=== PATIENT | female | born 1985 | race American Indian/Alaskan Native ===

== ENCOUNTER 2016-10-23 18:21 | Emergency (ER) | payer SELFPAY ==
--- NOTE | 2016-10-24 02:23 | Emergency Department Report ---
HPI - General Chief Complaint: Medical Clearance Time Seen by Provider: 10/24/16 01:40 - HPI HPI: 31 y/o female with complaint of mass to the right breast .pt state the mass has increase in size over the last 2 month .pt state painful to touch and unable to wear a bra or lie on side .pt state that she has taken over the counter pain medication without any relief .pt denies any drainage from site . ED Past Medical Hx - Social History Smoking Status: Never Smoker Substance Use Type: None - Medications Home Medications: Home Medications Medication Instructions Recorded Confirmed Last Taken Type Ciprofloxacin HCl [Cipro] 500 mg PO Q12H #20 tab 03/14/14 Unknown Rx Phenazopyridine [Pyridium] 200 mg PO PC #9 tablet 03/14/14 Unknown Rx Hydrocortisone 1% [Hydrocortisone 1 applicatio TP TID #1 tube 11/09/15 Unknown Rx 1% CREAM] Sulfamethoxazole/Trimethoprim 1 each PO BID #10 tablet 11/09/15 Unknown Rx [Bactrim DS TAB] Acetaminophen/Codeine [Tylenol #3] 1 tab PO Q4HR PRN #15 tablet 10/24/16 Unknown Rx ED Review of Systems ROS: Stated complaint: LT BREAST LUMP/DISCHARGE Other details as noted in HPI Constitutional: denies: chills, fever Eyes: denies: eye pain, eye discharge, vision change ENT: denies: ear pain, throat pain Respiratory: denies: cough, shortness of breath, wheezing Cardiovascular: denies: chest pain, palpitations Endocrine: no symptoms reported Gastrointestinal: denies: abdominal pain, nausea, diarrhea Genitourinary: denies: urgency, dysuria, discharge Musculoskeletal: denies: back pain, joint swelling, arthralgia Skin: denies: rash, lesions Neurological: denies: headache, weakness, paresthesias Psychiatric: denies: anxiety, depression Hematological/Lymphatic: denies: easy bleeding, easy bruising Physical Exam - Physical Exam Vital Signs: Vital Signs 10/23/16 18:25 Temperature 98.4 F Pulse Rate 97 H Respiratory 16 Rate Blood Pressure 108/74 O2 Sat by Pulse 98 Oximetry ED Course Vital Signs 10/23/16 18:25 Temperature 98.4 F Pulse Rate 97 H Respiratory 16 Rate Blood Pressure 108/74 O2 Sat by Pulse 98 Oximetry ED Medical Decision Making - Medical Decision Making Left breast mass per ultrasound pt instruct to follow up with primary care Critical care attestation.: If time is entered above; I have spent that time in minutes in the direct care of this critically ill patient, excluding procedure time. ED Disposition Clinical Impression: Left breast mass Disposition: DISCHARGED TO HOME OR SELFCARE Is pt being admited?: No Does the pt Need Aspirin: No Condition: Stable Instructions: Breast Mass (ED) Prescriptions: Acetaminophen/Codeine [Tylenol #3] 1 tab PO Q4HR PRN #15 tablet PRN Reason: Pain Referrals: PRIMARY CARE, [Primary Care Provider] - 3-5 Days [facility] [Outside] - 3-5 Days Forms: Work/School Release Form(ED) Time of Disposition: 02:55
--- NOTE | 2016-10-24 02:36 | Ultrasound Report ---
FINAL REPORT PROCEDURE: US BREAST LT LIMITED TECHNIQUE: Real-time sonography in multiple planes of the LEFT breast was performed with image documentation; limited. HISTORY: edema and pain mass noted COMPARISON: No prior studies are available for comparison. FINDINGS: LEFT breast: There is a 5.1 centimeter mass in the upper outer quadrant of the left breast in the 2 o'clock position. This contains fluid and solid components and peripheral and internal vascularity. There is posterior acoustical enhancement. This could be a hematoma. Abscess considered less likely. Solid tumor not excluded. Percutaneous aspiration may be indicated. IMPRESSION: Left breast mass as described.
[2016-10-24 03:10] VITALS: BP 121/86
== END 2016-10-24 03:22 | disposition home or self-care (01) ==
LOC: ED 18:21
DX: N63 Unspecified lump in breast (principal)

== ENCOUNTER 2016-11-08 14:51 | Emergency (ER) | payer OTHER ==
[2016-11-08 17:35] LABS: Basophils % (Auto) 0.8 % (0.0-1.8); Eosinophils % (Auto) 3.4 % (0.0-4.3); Hematocrit 37.6 % (30.3-42.9); Hemoglobin 12.9 gm/dl (10.1-14.3); Mean Corpuscular HGB Conc 34 % (30-34); Mean Corpuscular Hemoglobin 30 pg (28-32); Mean Corpuscular Volume 88 fl (79-97); Platelet Count 265 K/mm3 (140-440); Red Blood Count 4.27 M/mm3 (3.65-5.03); Red Cell Distribution Width 12.8 % (13.2-15.2); White Blood Count 4.9 K/mm3 (4.5-11.0)
[2016-11-08 18:09] LABS: Anion Gap 13 mmol/L; BUN/Creatinine Ratio 18.33; Blood Urea Nitrogen 11 mg/dL (7-17); Carbon Dioxide 28 mmol/L (22-30); Chloride 100.2 mmol/L (98-107); Glucose 110 mg/dL (65-100); Potassium 3.7 mmol/L (3.6-5.0); Sodium 137 mmol/L (137-145)
--- NOTE | 2016-11-08 22:27 | Emergency Department Report ---
ED General Adult HPI - General Chief complaint: Skin/Abscess/Foreign Body Stated complaint: PAIN IN LEFT BREAST Time Seen by Provider: 11/08/16 19:08 Source: patient Mode of arrival: Ambulatory Limitations: No Limitations - History of Present Illness Initial comments: 31-year-old female that was seen here on 10/23/2016 for complaint of breast pain. Patient had an ultrasound of the left breast in the findings were there is a 5.1 cm mass in the upper outer quadrant of the left breast in the 2 o' clock position discontinues fluid and solid component and peripheral and internal vascularity there is a posterior acoustical enhancement. This could be a hematoma. Abscess consider less likely. Solid tumor not excluded. Percutaneous aspiration may be indicated. To follow-up with [facility] as well as they referred her to a breast specialist. Patient brings in a paper stating that she needs to come here for further diagnostic tests with biopsy. She does now live in the [facility]. Please assist with your [facility] funds for these available services she lives in your district. Patient's complain that she is having pain 8 out of 10. Patient does inform me that she's been placed on antibiotics and has a prescription for pain medicine. - Related Data Previous Rx's Medication Instructions Recorded Last Taken Type Ciprofloxacin HCl [Cipro] 500 mg PO Q12H #20 tab 03/14/14 Unknown Rx Phenazopyridine [Pyridium] 200 mg PO PC #9 tablet 03/14/14 Unknown Rx Hydrocortisone 1% [Hydrocortisone 1 applicatio TP TID #1 tube 11/09/15 Unknown Rx 1% CREAM] Sulfamethoxazole/Trimethoprim 1 each PO BID #10 tablet 11/09/15 Unknown Rx [Bactrim DS TAB] Acetaminophen/Codeine [Tylenol #3] 1 tab PO Q4HR PRN #15 tablet 10/24/16 Unknown Rx Allergies Allergy/AdvReac Type Severity Reaction Status Date / Time No Known Allergies Allergy Verified 03/14/14 01:41 ED Review of Systems ROS: Stated complaint: PAIN IN LEFT BREAST Other details as noted in HPI ED Past Medical Hx - Past Medical History Previous Medical History?: No - Surgical History Past Surgical History?: No - Social History Smoking Status: Never Smoker Substance Use Type: None - Medications Home Medications: Home Medications Medication Instructions Recorded Confirmed Last Taken Type Ciprofloxacin HCl [Cipro] 500 mg PO Q12H #20 tab 03/14/14 Unknown Rx Phenazopyridine [Pyridium] 200 mg PO PC #9 tablet 03/14/14 Unknown Rx Hydrocortisone 1% [Hydrocortisone 1 applicatio TP TID #1 tube 11/09/15 Unknown Rx 1% CREAM] Sulfamethoxazole/Trimethoprim 1 each PO BID #10 tablet 11/09/15 Unknown Rx [Bactrim DS TAB] Acetaminophen/Codeine [Tylenol #3] 1 tab PO Q4HR PRN #15 tablet 10/24/16 Unknown Rx ED Physical Exam - General Limitations: No Limitations General appearance: alert - Head Head exam: Present: atraumatic, normocephalic - Respiratory Respiratory exam: Present: other (left breast firmness warm erythematous tender to palpate.) ED Course Vital Signs 11/08/16 16:09 Temperature 98.1 F Pulse Rate 92 H Respiratory 18 Rate Blood Pressure 120/75 O2 Sat by Pulse 98 Oximetry ED Medical Decision Making - Lab Data Result diagrams: 11/08/16 17:03 11/08/16 17:03 - Medical Decision Making Patient been evaluated by this provider in fast track. Discussed with patient that we will need her to come in in the morning to speak to the social work case manager regards to getting her stereotactic biopsy of her left breast done. Also discussed with patient that she needs to contact the provider who ordered her to come here with him to schedule biopsy. Given patient pain medication to get her out of discomfort. Patient verbalized understanding Critical care attestation.: If time is entered above; I have spent that time in minutes in the direct care of this critically ill patient, excluding procedure time. ED Disposition Clinical Impression: Breast mass, left Disposition: DISCHARGED TO HOME OR SELFCARE Is pt being admited?: No Does the pt Need Aspirin: No Condition: Stable Instructions: Breast Mass (ED) Additional Instructions: It's important for you to come here in the morning around 8-830am to speak to the social work case manager regards to helping you scheduled for this stereotactic biopsy. their number [phone]. Referrals: PRIMARY CARE, [Primary Care Provider] - 3-5 Days Forms: Work/School Release Form(ED)
[2016-11-08] MEDS: NORCO 7.5/325 PO ONE (22:46)
[2016-11-08 22:50] VITALS: BP 121/82
--- NOTE | 2016-11-08 22:52 | XRay Report ---
FINAL REPORT EXAM: XR CHEST ROUTINE 2V HISTORY: STEVE TECHNIQUE: Frontal and lateral chest x-ray. PRIORS: None. FINDINGS: Cardiac and mediastinal silhouette within normal limits. Lungs are normally expanded. No focal consolidation, pleural effusion or apparent pneumothorax. IMPRESSION: 1. No acute findings.
== END 2016-11-08 22:50 | disposition home or self-care (01) ==
LOC: ED 14:51
DX: N63 Unspecified lump in breast (principal)
CPT/HCPCS: 36415; 71020; 80048; 85025

== ENCOUNTER 2016-12-14 15:22 | Outpatient (CLI) | payer SELFPAY | END 2016-12-14 15:23 | disposition home or self-care (01) | LOC: LABHHL 15:22 | PROVIDERS: ATTEND Surgery | DX: C50.112 Malignant neoplasm of central portion of left female breast (principal) | CPT/HCPCS: 88305 ==

== ENCOUNTER 2016-12-20 06:35 | Day surgery (SDC) | payer MEDICAID, OTHER ==
[~2016-12-20 06:35] MED LIST: DILAUDID ONE; DIPRIVAN 10 MG/ML IV ONE; XYLOCAINE MPF 2% ONE
[2016-12-20] MEDS ORDERED: LACTATED RINGERS 1,000 ML IV SCH (07:00)
[2016-12-20] MEDS ORDERED: VERSED IV NR (07:00)
--- NOTE | 2016-12-20 07:05 | Anesthesia Day of Surgery ---
Anesthesia Day of Surgery - Day of Surgery Patient Examined: Yes Patient H&P Reviewed: Yes Patient is NPO: Yes
--- NOTE | 2016-12-20 07:07 | Anesthesia Consultation ---
Anesthesia Consult and Med Hx - Airway Anesthetic Teeth Evaluation: Good ROM Head & Neck: Adequate Mental/Hyoid Distance: Inadequate Mallampati Class: Class II Intubation Access Assessment: Probably Good - Pulmonary Exam CTA: Yes - Cardiac Exam Cardiac Exam: RRR - Pre-Operative Health Status ASA Pre-Surgery Classification: ASA2 Proposed Anesthetic Plan: General - Central Nervous System Hx Psychiatric Problems: No - Gastrointestinal Hx Gastroesophageal Reflux Disease: Yes (only with certain foods) - Other Systems Hx Cancer: Yes (RIGHT BREAST, DX:12/08/16) - Additional Comments Anesthesia Medical History Comments: NPO after MN. No prior anesthetics. No family hx of anesthesia problems
[2016-12-20] MEDS ORDERED: NACL BACTERIOSTATIC INFILTRATI ONE (07:19)
[2016-12-20] MEDS ORDERED: ANCEF/STERILE WATER 2 GM/20 ML IV NR (08:00)
[2016-12-20] MEDS ORDERED: PEPCID PO NR (08:00)
[2016-12-20] MEDS ORDERED: ZOFRAN ONE (08:02)
[2016-12-20] MEDS ORDERED: DECADRON ONE (08:02)
[2016-12-20] MEDS ORDERED: PERCOCET 5/325 PO PRN (08:30)
[2016-12-20] MEDS ORDERED: NACL 0.9% IR ONE (08:30)
[2016-12-20] MEDS ORDERED: HEPARIN 10,000 UNITS/10 ML IV ONE (08:31)
[2016-12-20] MEDS ORDERED: NACL 0.9% IV ONE (08:31)
--- NOTE | 2016-12-20 09:14 | Short Stay Summary ---
Short Stay Documentation Date of service: 12/20/16 - History H&P: obtained from office - Allergies and Medications Current Medications: Allergies latex Allergy (Severe, Verified 12/20/16 07:10) Swelling rash, noted after intercourse with a latex condom, denies any breathing difficulty at that time Home Medications Medication Instructions Recorded Confirmed Last Taken Type Sulfamethoxazole/Trimethoprim 1 each PO BID #10 tablet 11/09/15 12/20/16 23:30 Rx [Bactrim DS TAB] Acetaminophen/Codeine [Tylenol #3] 1 tab PO Q4HR PRN #15 tablet 10/24/1612/19/16 23:30 Rx Active Medications Cefazolin Sodium (Ancef/Sterile Water 2 Gm/20 Ml) 2 gm IV PREOP NR Stop: 12/20/16 23:59 Famotidine (Pepcid) 20 mg PO PREOP NR Stop: 12/20/16 23:59 Last Admin: 12/20/16 07:30 Dose: 20 mg Hydromorphone HCl (Dilaudid) 0.5 mg IV Q10MIN PRN PRN Reason: Pain , Severe (7-10) Stop: 12/23/16 16:00 Lactated Ringer's (Lactated Ringers) 1,000 mls @ 100 mls/hr IV DIRECT JOSE ALFREDO Last Admin: 12/20/16 07:25 Dose: 100 mls/hr Midazolam HCl (Versed) 2 mg IV PREOP NR Stop: 12/20/16 23:59 Last Admin: 12/20/16 07:44 Dose: 2 mg Oxycodone/Acetaminophen (Percocet 5/325) 1 tab PO ONCE PRN PRN Reason: Pain, Moderate (4-6) Stop: 12/20/16 16:00 - Brief post op/procedure progress note Date of procedure: 12/20/16 Pre-op diagnosis: Left breast cancer Post-op diagnosis: same Procedure: Right port placement Anesthesia: GETA Findings: Right port placement in good position Surgeon: BIB BENITO Estimated blood loss: minimal Pathology: none Condition: stable - Disposition Condition at discharge: Good Disposition: DISCHARGED TO HOME OR SELFCARE Short Stay Discharge Plan Activity: other (no heavy lifting) Diet: regular Wound: other (keep incision clean and dry; may shower in 24 hours; no baths, pools or lakes) Follow up with: MONICA METZ MD [Primary Care Provider] - 7 Days BIB BENITO MD [Staff Physician] - 7 Days
--- NOTE | 2016-12-20 09:24 | Operative Report ---
Operative Report Operative Report: Date of procedure: 12/20/2016 Pre-operative diagnosis: Left breast cancer of the upper outer quadrant in need of central venous access Post-operative diagnosis: Same Procedure name(s): Right port placement under fluoroscopy guidance Surgeon: Ria Baron M.D. Anesthesia: Gen. Findings: Right port placement with position confirmed under fluoroscopy guidance in good position Complications: None Indications for operative procedure: This is a 31-year-old premenopausal -[place] lady with stage III left breast cancer of the upper outer quadrant. Patient will start neoadjuvant chemotherapy this coming Monday and is in need of central venous access. Patient wished to proceed with the above procedure. Procedure in detail: Patient was taken to the operating room. Gen. anesthesia was administered. Bilateral neck and chest were prepped and draped in the normal sterile operative fashion. Head was placed down. Sternal notch as well as the clavicle and pectoral groove were identified. The right subclavian vein was accessed with needle and syringe attached with appropriate backflow of blood. Guidewire was then inserted with position confirmed under fluoroscopy guidance. A skin incision using a 15 blade knife was then made at the insertion of the wire. A pocket was created with the aid of the Bovie cautery. Dilator with sheath attached were then threaded through the wire with the dilator and wire then removed and catheter placed. The sheath was then peeled away with catheter in place. Catheter was then placed correctly at the atrial caval junction and catheter cut to size. Appropriate backflow of blood was noted with heparin-saline flush. The port was then attached to the catheter and placed in the pocket created nicely. The port was then sutured into place. The port was then accessed with heparine-saline with good backflow blood. The port was then flushed with heparin. Skin incision was approximated and closed with interrupted 3-0 Vicryl and skin closed with running 4-0 Monocryl and skin affix. Checks x-ray then performed in upright position with port in good placement with no findings for pneumothorax. She was awakened from anesthesia without any complications and transported to PACU in good condition.
[2016-12-20] MEDS: DILAUDID IV PRN ×2 (09:45→09:57)
--- NOTE | 2016-12-20 09:47 | Post Anesthesia Evaluation ---
- Post Anesthesia Evaluation Patient Participated: Yes Airway Patent: Yes Stable Respiratory Function: Yes Nausea/Vomiting: No Temp > 96.8F: Yes Pain Manageable: Yes Adequeate Hydration: Yes Anesthesia Complications: No Block Receding Appropriately: Not Applicable Patient on Ventilator: No
[2016-12-20] MEDS ORDERED: ANCEF/STERILE WATER 2 GM/20 ML IV ONE (09:49)
--- NOTE | 2016-12-20 10:31 | Fluoroscopy Report ---
AP chest: An Shwsgf-[id number]-Gwvz is present on the right entering the subclavian vein. The tip is in the mid SVC. The lungs are clear and the mediastinal contour is unremarkable.
[2016-12-20 11:16] VITALS: BP 109/72
== END 2016-12-20 11:00 | disposition home or self-care (01) ==
LOC: OR 06:35
PROVIDERS: ATTEND Surgery
DX: C50.412 Malignant neoplasm of upper-outer quadrant of left female breast (principal); K21.9 Gastro-esophageal reflux disease without esophagitis; Z80.1 Family history of malignant neoplasm of trachea, bronchus and lung; Z80.3 Family history of malignant neoplasm of breast
CPT/HCPCS: 36561; 77001; 81025; 88112; 88305; C1788; J0690; J1100; J1170; J1644; J2250; J2405; J2704; J7120

== ENCOUNTER 2016-12-20 17:01 | Outpatient (CLI) | payer MEDICAID | END 2016-12-20 17:02 | disposition home or self-care (01) | LOC: LAB 17:01 | PROVIDERS: ATTEND Surgery | DX: C50.112 Malignant neoplasm of central portion of left female breast (principal) | CPT/HCPCS: 88112; 88305 ==

== ENCOUNTER 2016-12-30 10:25 | Outpatient (CLI) | payer MEDICAID ==
[2016-12-30 12:15] LABS: Blood Urea Nitrogen 10 mg/dL (7-17)
[2016-12-30] MEDS ORDERED: NACL ONE ×2 (13:34→14:23)
--- NOTE | 2016-12-31 09:58 | Nuclear Medicine Report ---
Whole body bone scan: Examination performed with 25 mCi technetium 99m MDP. History: Breast cancer. Findings: Uniform distribution of tracer is noted at calvarium, cervical, thoracic and lumbar spine. Normal tracer pelvis ribs hips and upper and lower extremity. Normal tracer is noted in kidneys and bladder. Impression: Essentially negative bone scan.
--- NOTE | 2017-01-02 15:45 | Cat Scan Report ---
CT CHEST, ABDOMEN AND PELVIS WITH CONTRAST: 12/30/16 10:25:00 CLINICAL: Newly diagnosed left breast cancer. COMPARISON: MRI Breast 12/16/16 TECHNIQUE: Volumetric acquisition and 1.25 millimeter scan reconstructions after the uneventful intravenous injection of 100 cc of Omnipaque 300. Consent was obtained prior to the administration of the contrast. Oral contrast was also given. FINDINGS: Chest: The lungs are clear. No pulmonary nodule or mass. Normal aorta, heart and pulmonary arteries. Normal esophagus and trachea. No mediastinal or hilar lymphadenopathy.No axillary or supraclavicular lymphadenopathy. A right [id number]-w-[id number] tip is in the distal SVC. The enlarged left breast with a known 8 cm mass is partially included on the exam. Numerous left axillary lymph nodes. The largest lymph node measures 2 cm and contains a biopsy clip. It correlates with the known metastatic lymph node. Abdomen: Normal stomach, duodenum, pancreas and spleen. Normal kidneys. Normal aorta and inferior vena cava. No lymphadenopathy.No ascites.Normal small bowel. Normal ascending, transverse and descending colon. Normal appendix. Pelvis: Normal urinary bladder and rectum.Normal uterus with an IUD. Normal right ovary. A 3 cm cyst of the left ovary. Bone windows demonstrate no suspicious bone lesion. IMPRESSION:1. Known left breast cancer with left axillary cleve metastasis. 2. No evidence of pulmonary, hepatic or skeletal metastasis. 3. A 3 cm cyst of the left ovary.
== END 2016-12-30 10:26 | disposition home or self-care (01) ==
LOC: NM 10:25
PROVIDERS: ATTEND Surgery
DX: C50.412 Malignant neoplasm of upper-outer quadrant of left female breast (principal)
CPT/HCPCS: 36415; 71260; 74177; 78306; 82565; 84520; A9503; Q9967

== ENCOUNTER 2017-07-26 10:25 | Observation (INO) | payer MEDICAID ==
[~2017-07-26 10:25] MED LIST changes: -DILAUDID ONE; -DIPRIVAN 10 MG/ML IV ONE; +MARCAINE 0.25% INFILTRATI ONE; +XYLOCAINE 1% 20 mL ONE; -XYLOCAINE MPF 2% ONE
[2017-07-26] MEDS ORDERED: VERSED IV PRN (10:37)
[2017-07-26] MEDS ORDERED: MARCAINE-EPI 0.5%-1:200,000 INFILTRATI ONE (10:39)
[2017-07-26] MEDS ORDERED: PEPCID IV NR (11:00)
[2017-07-26] MEDS ORDERED: NEURONTIN PO NR (11:00)
[2017-07-26] MEDS ORDERED: NACL 0.9% 1000 ML 1,000 ML IV SCH (11:00)
[2017-07-26] MEDS ORDERED: DECADRON IV ONE (11:00)
--- NOTE | 2017-07-26 11:26 | Anesthesia Consultation ---
Anesthesia Consult and Med Hx Date of service: 07/26/17 - Airway Anesthetic Teeth Evaluation: Good ROM Head & Neck: Adequate Mental/Hyoid Distance: Adequate Mallampati Class: Class II Intubation Access Assessment: Good - Pulmonary Exam CTA: Yes - Cardiac Exam Cardiac Exam: No Murmur - Pre-Operative Health Status ASA Pre-Surgery Classification: ASA2 Proposed Anesthetic Plan: General Nerve Block: PEC - Pulmonary Hx Smoking: Yes (3 years quit when she was 23) - Central Nervous System Hx Psychiatric Problems: No - Gastrointestinal Hx Gastroesophageal Reflux Disease: Yes (only with certain foods) - Hematic Hx Anemia: Yes - Other Systems Hx Alcohol Use: No Hx Substance Use: No Hx Cancer: Yes
--- NOTE | 2017-07-26 11:26 | Anesthesia Day of Surgery ---
Anesthesia Day of Surgery - Day of Surgery Patient Examined: Yes Patient H&P Reviewed: Yes Patient is NPO: Yes
[2017-07-26] MEDS ORDERED: NEO SYNEPHRINE/NS Syringe(OR USE) IV ONE (12:00)
[2017-07-26] MEDS ORDERED: MARCAINE 0.5% INFILTRATI ONE (12:00)
[2017-07-26] MEDS ORDERED: DIPRIVAN 10 MG/ML IV ONE (12:21)
[2017-07-26] MEDS ORDERED: DILAUDID ONE ×2 (12:21→17:10)
[2017-07-26] MEDS ORDERED: DECADRON ONE (12:22)
[2017-07-26] MEDS ORDERED: XYLOCAINE MPF 2% ONE (12:22)
[2017-07-26] MEDS ORDERED: ZOFRAN ONE (12:22)
[2017-07-26] MEDS ORDERED: WATER FOR IRRIG STERILE IR ONE (13:06)
[2017-07-26] MEDS ORDERED: ANCEF/STERILE WATER 2 GM/20 ML IV NR (14:00)
--- NOTE | 2017-07-26 16:19 | Short Stay Summary ---
Short Stay Documentation Date of service: 07/26/17 - History H&P: obtained from office - Allergies and Medications Current Medications: Allergies latex Allergy (Severe, Verified 07/21/17 14:35) Swelling rash, noted after intercourse with a latex condom, denies any breathing difficulty at that time Home Medications Medication Instructions Recorded Confirmed Last Taken Type Cyclobenzaprine [Flexeril] 10 mg PO TID PRN #20 tablet 07/26/17 Unknown Rx HYDROcodone/APAP 5-325 [[place] 1 each PO Q6HR PRN #30 tablet 07/26/17 Unknown Rx 5/325] Active Medications Cefazolin Sodium (Ancef/Sterile Water 2 Gm/20 Ml) 2 gm IV PREOP NR Stop: 07/26/17 21:00 Sodium Chloride (Nacl 0.9% 1000 Ml) 1,000 mls @ 100 mls/hr IV DIRECT JOSE ALFREDO Last Admin: 07/26/17 11:34 Dose: 100 mls/hr - Brief post op/procedure progress note Date of procedure: 07/26/17 Pre-op diagnosis: Left breast cancer of the upper outer quadrant Post-op diagnosis: same Procedure: Left modified radical mastectomy Anesthesia: GETA Findings: Left MRM Surgeon: BIB BENITO Oyster Shucker: SANTOS SOLARES Estimated blood loss: minimal Pathology: list (left MRM) Specimen disposition: to lab Condition: stable - Disposition Condition at discharge: Good Disposition: [id number]/TX-02 [facility] Short Stay Discharge Plan Activity: other (no heavy lifting) Diet: regular Wound: other (keep incision clean and dry and may shower in 48 hours; no baths, pools or lakes; do not rub or scrub incision) Follow up with: MONICA METZ MD [Primary Care Provider] - 7 Days BIB BENITO MD [Staff Physician] - 7 Days Prescriptions: Cyclobenzaprine [Flexeril] 10 mg PO TID PRN #20 tablet PRN Reason: Muscle Spasm HYDROcodone/APAP 5-325 [[place] 5/325] 1 each PO Q6HR PRN #30 tablet PRN Reason: Pain
--- NOTE | 2017-07-26 16:32 | Operative Report ---
Operative Report Operative Report: Date of service: 07/26/2017 Preoperative diagnosis: Left breast cancer of the upper outer quadrant, Stage III Postoperative diagnosis: Same Procedure: Left modified radical mastectomy Surgeon: Ria Baron M.D. Asst.: Donna Ramirez MD Anesthesia: Gen. Findings: Known left breast cancer mass at the 2:00 position Complications: None Drains: Two 19 American KRISTEN drain Estimated blood loss: Minimal Disposition: PACU in good condition Indications for operative procedure: This is a 32-year-old premenopausal -[place] lady with stage III left breast cancer of the upper outer quadrant. She recently completed neoadjuvant chemotherapy. Recommendations were to proceed with a left MRM. Patient wished to proceed with the above procedure. Procedure in detail: Anesthesia placed a left pectoral muscle block prior to going to the operating room. The patient was taken to the operating room and was placed supine. Gen. anesthesia was administered. The left breast and chest were prepped and draped in the normal sterile operative fashion. Timeout was performed. Typical mastectomy incision markings were made. Palpable known breast cancer was noted at eliza 2:00 positino 4-6 cm from the nipple at skin dimplling. A skin incision was made with a 10 blade knife and dissection taken down to the subcutaneous tissues. First began raising of the superior flap to the level of the clavicle superiorly and posteriorly to the pectoralis muscle. Followed by raising of the medial flap to the level of the sternum and posteriorly to the pectoralis muscle. Followed by raising of the lateral flap to the level of the latissimus dorsi muscle and taken down posteriorly. Then proceeded with raising of the inferior flap to the level of the inframammary fold taken posteriorly to the pectoralis muscle. The mastectomy/breast was removed from the pectoralis muscle without incident. The specimen was appropriately marked and sent to pathology. Attention was then taken towards the left axilla for performance of the axillary lymph node dissection. The subclavian vein was identified and lymph nodes inferior to the vein was sweeped down inferiorly. Attention was then taken towards identification of the thoracodorsal bundle and long thoracic nerve. Axillary lymph nodes were removed between those boundaries and nerves unharmed. Palpable lymph nodes were present. Axillary lymph nodes were then sent to pathology. Hemostasis was noted. Two 19 American drains were placed, one in the axilla and one in the chest wall cavity. The subcutaneous tissues were approximated and closed using interrupted 3-0 Vicryl and the skin brought together and closed using a running 4-0 Monocryl followed by skin affix. She tolerated surgery very well and was awakened from anesthesia without any complications and transported to PACU in good condition.
[2017-07-26] MEDS ORDERED: REGLAN PO PRN (16:34)
[2017-07-26] MEDS ORDERED: ZOFRAN IV PRN (16:34)
[2017-07-26] MEDS ORDERED: BENADRYL PO PRN (16:34)
[2017-07-26] MEDS ORDERED: SODIUM CHLORIDE FLUSH SYRINGE 10 ML IV PRN (16:34)
[2017-07-26] MEDS ORDERED: TYLENOL PO PRN (16:34)
[2017-07-26] MEDS ORDERED: MORPHINE IV PRN (16:38)
[2017-07-26] MEDS ORDERED: LACTATED RINGERS 1,000 ML IV SCH (17:00)
[2017-07-26] MEDS: DILAUDID IV PRN ×2 (17:08→17:26)
--- NOTE | 2017-07-26 17:23 | Post Anesthesia Evaluation ---
- Post Anesthesia Evaluation Patient Participated: Yes Airway Patent: Yes Stable Respiratory Function: Yes Temp > 96.8F: Yes Pain Manageable: Yes Adequeate Hydration: Yes Anesthesia Complications: No
[2017-07-26] MEDS: COLACE PO SCH (22:20)
[2017-07-26] MEDS: PERCOCET 5/325 PO PRN (23:54)
[2017-07-27] MEDS: PERCOCET 5/325 PO PRN (05:16)
--- NOTE | 2017-07-27 06:24 | Progress Note ---
Assessment and Plan This is a 32 year old lady with Stage III left breast cancer POD#1 left MRM. 1. Pain well controlled. 2. Left chest incision healing well. 3. KRISTEN drain education. 4. OOB to hallway. 5. D/C planning for today. - Patient Problems (1) Breast cancer Status: Acute Qualifiers: Breast location: upper outer quadrant of breast Estrogen receptor status: E Patient sex: female Laterality: left Qualified Code(s): C50.412 - Malignant neoplasm of upper-outer quadrant of left female breast; Z17.0 - Estrogen receptor positive status [ER+]; Z17.0 - Estrogen receptor positive status [ER+] (2) Left breast mass Status: Acute Subjective Date of service: 07/27/17 Principal diagnosis: Left breast cancer of the upper outer quadrant Interval history: POD#1 left MRM Objective - Constitutional Vitals: Vital Signs - 12hr 07/26/17 07/27/17 21:00 02:45 Temperature 97.5 F L 97.7 F Pulse Rate 74 85 Respiratory 20 20 Rate Blood Pressure 89/62 98/60 [Right] O2 Sat by Pulse 100 100 Oximetry General appearance: Present: no acute distress - EENT Eyes: PERRL, EOM intact ENT: hearing intact, clear oral mucosa, dentition normal Ears: bilateral: normal - Neck Neck: supple, normal ROM - Respiratory Respiratory effort: normal Respiratory: bilateral: CTA - Breasts Breasts: other (left chest incision healing well; clean, dry and intact; no hematoma; KRISTEN drains to bulb suction; skin well perfursed) - Cardiovascular Rhythm: regular Extremities: no ischemia, pulses intact, pulses symmetrical, No edema, normal temperature, normal color, Full ROM - Gastrointestinal General gastrointestinal: Present: soft, non-tender, non-distended Rectal Exam: deferred - Genitourinary Female genitourinary: deferred - Integumentary Integumentary: clear, warm, dry - Musculoskeletal Musculoskeletal: strength equal bilaterally - Neurologic Neurologic: CNII-XII intact, moves all extremities - Psychiatric Psychiatric: appropriate mood/affect, intact judgment & insight, memory intact, cooperative
[2017-07-27] MEDS ORDERED: PERCOCET 5/325 PO PRN (08:30)
[2017-07-27] MEDS ORDERED: PRED FORTE 1% ONE (12:59)
--- NOTE | 2017-07-27 13:18 | Progress Note ---
Subjective Date of service: 07/27/17 Principal diagnosis: Left breast cancer of the upper outer quadrant Interval history: 1st POD after mastectomy Patient is in the bed, comfortable. Pain is well controlled with pain meds. Ambulated well. No nausea or vomiting. No anesthesia complications Objective - Constitutional Vitals: Vital Signs - 12hr 07/27/17 07/27/17 07/27/17 02:45 07:09 07:55 Temperature 97.7 F 98.3 F 98.6 F Pulse Rate 85 74 71 Respiratory 20 18 18 Rate Blood Pressure 98/60 100/67 94/57 [Right] O2 Sat by Pulse 100 100 98 Oximetry 07/27/17 11:35 Temperature 98.5 F Pulse Rate 91 H Respiratory 20 Rate Blood Pressure 93/61 [Right] O2 Sat by Pulse 100 Oximetry
[2017-07-27] MEDS: COLACE PO SCH (13:35)
[2017-07-27 16:42] VITALS: BP 104/70
== END 2017-07-27 17:30 | disposition home or self-care (01) ==
LOC: OR 10:25 → OB 16:34
PROVIDERS: ADMIT Surgery; ATTEND Surgery
DX: C50.412 Malignant neoplasm of upper-outer quadrant of left female breast (principal); Z80.3 Family history of malignant neoplasm of breast; Z79.899 Other long term (current) drug therapy
CPT/HCPCS: 19307; 64450; 81025; 88305; 88309; 88342; 96374; 96375; 96376; G0378; J1100; J1170; J2250; J2270; J2370; J2405; J2704; J7030; J7120; 88307

== ENCOUNTER 2019-05-27 10:56 | Day surgery (SDC) | payer MEDICAID, OTHER ==
[~2019-05-27 10:56] MED LIST changes: +ANCEF/STERILE WATER 2 GM/20 ML 2 GM/20 ML SYRINGE IV NR; -MARCAINE 0.25% INFILTRATI ONE; -XYLOCAINE 1% 20 mL ONE
--- NOTE | 2019-05-27 12:15 | Operative Report ---
Operative Report Operative Report: Operative Report: Date of Service: May 27, 2019 Properative diagnosis: Right port with central venous access not indicated Postoperative diagnosis: Same Procedure: Right port removal Surgeon: Ria Baron MD Photographer Finish: Nani Dennis MD Anesthesia: Local MAC Findings: Removal of right port in its entirety Complications: None Drain: None Disposition: PACU in good condition Indications for operative procedure: This is a 34-year-old lady with a personal history of Stage III left breast cancer. Patient has completed neoadjuvant chemotherapy and central venous access no longer indicated. Patient wished to proceed with port removal. Procedure in detail: Patient was taken to the operating procedure room. She was laid supine. Local MAC anesthesia was administered. The port was identified of the right chest. The right chest was prepped and draped in the normal sterile operative fashion. The skin was anesthetized with 1% lidocaine mix with quarter percent Marcaine. The prior port incision was opened with a 15 blade knife and taken down to the subcutaneous tissues. The port was encountered. The catheter was encountered and was appropriately dissected free and removed in its entirety. Then proceed with port removal with dissection of scar tissue around the port. The port was removed in its entirety without any complications. Hemostasis was obtained. Port cavity site was irragated and suctioned. The subcutanoeus tisses were brought together and closed with interrupted 3-0 Vicryl followed by closing of the skin with a running 4-0 Monocryl. She tolerated the procedure very well and was transferred to PACU in good condition.
--- NOTE | 2019-05-27 12:16 | Anesthesia Consultation ---
Anesthesia Consult and Med Hx Date of service: 05/27/19 - Airway Anesthetic Teeth Evaluation: Good ROM Head & Neck: Adequate Mental/Hyoid Distance: Adequate Mallampati Class: Class II Intubation Access Assessment: Good - Pulmonary Exam CTA: Yes - Cardiac Exam Cardiac Exam: RRR - Pre-Operative Health Status ASA Pre-Surgery Classification: ASA2 Proposed Anesthetic Plan: MAC - Pulmonary Hx Smoking: No (3 years quit when she was 23) Hx Asthma: No COPD: No Hx Pneumonia: No - Central Nervous System Hx Psychiatric Problems: Yes - Gastrointestinal Hx Gastroesophageal Reflux Disease: Yes (only with certain foods) - Endocrine Hx End Stage Renal Disease: No - Hematic Hx Anemia: Yes - Other Systems Hx Alcohol Use: Yes (OCC, MIXED DRINK) Hx Substance Use: No Hx Cancer: Yes
--- NOTE | 2019-05-27 12:16 | Anesthesia Day of Surgery ---
Anesthesia Day of Surgery - Day of Surgery Patient Examined: Yes Patient H&P Reviewed: Yes Patient is NPO: Yes
[2019-05-27] MEDS ORDERED: MARCAINE 0.25% INFILTRATI ONE ×3 (12:20→12:35)
[2019-05-27] MEDS ORDERED: XYLOCAINE 1% 20 mL ONE (12:20)
[2019-05-27] MEDS ORDERED: SUBLIMAZE ONE (12:25)
[2019-05-27] MEDS ORDERED: DIPRIVAN 10 MG/ML IV ONE ×2 (12:25→12:58)
[2019-05-27] MEDS ORDERED: LACTATED RINGERS 1,000 ML IV SCH (12:30)
[2019-05-27] MEDS ORDERED: VERSED IV NR (12:30)
[2019-05-27] MEDS ORDERED: XYLOCAINE 1% 20 mL INFILTRATI ONE ×2 (12:35)
[2019-05-27] MEDS ORDERED: WATER FOR IRRIG STERILE IR ONE (12:35)
[2019-05-27] MEDS ORDERED: PHENYLEPHRINE/NS Syringe 1,000 MCG/10 ML IV ONE (13:02)
--- NOTE | 2019-05-27 13:22 | Short Stay Summary ---
Short Stay Documentation Date of service: 05/27/19 - History H&P: obtained from office - Allergies and Medications Current Medications: Allergies latex Allergy (Severe, Verified 07/21/17 14:35) Swelling rash, noted after intercourse with a latex condom, denies any breathing difficulty at that time Home Medications Medication Instructions Recorded Confirmed Last Taken Type oxyCODONE 5 mg PO PRN 05/24/19 05/24/19 Unknown History Active Medications Cefazolin Sodium (Ancef/Sterile Water 2 Gm/20 Ml) 2 gm in 20 mls @ 80 mls/hr IV PREOP NR; Protocol Stop: 05/27/19 23:59 Lactated Ringer's (Lactated Ringers) 1,000 mls @ 100 mls/hr IV DIRECT JOSE ALFREDO Last Admin: 05/27/19 12:18 Dose: 100 mls/hr Documented by: Midazolam HCl (Versed) 2 mg IV ONCE NR Stop: 05/27/19 19:00 Last Admin: 05/27/19 12:18 Dose: 2 mg Documented by: - Brief post op/procedure progress note Date of procedure: 05/27/19 Pre-op diagnosis: History of left breast cancer, central venous access not indicated Post-op diagnosis: same Procedure: Right port removal Anesthesia: MAC Findings: Right port removal in its entirety Surgeon: BIB BENITO Electronic Device Monitor: DOMINGO OLSEN Estimated blood loss: minimal Pathology: list (port) Specimen disposition: to lab - Disposition Condition at discharge: Good Disposition: DC-01 TO HOME OR SELFCARE Short Stay Discharge Plan Activity: other (no heavy lifting) Diet: regular Wound: keep clean and dry (may shower in 24 hours) Follow up with: MARTINEZ BLUNT NP-C [Primary Care Provider] - 7 Days BIB BENITO MD [Staff Physician] - 7 Days
[2019-05-27 14:17] VITALS: BP 100/73
== END 2019-05-27 15:00 | disposition home or self-care (01) ==
LOC: OR 10:56
PROVIDERS: ATTEND Surgery
DX: Z45.2 Encounter for adjustment and management of vascular access device (principal); K21.9 Gastro-esophageal reflux disease without esophagitis; F41.9 Anxiety disorder, unspecified; Z85.3 Personal history of malignant neoplasm of breast; Z79.899 Other long term (current) drug therapy; Z91.040 Latex allergy status; Z90.12 Acquired absence of left breast and nipple; Z87.440 Personal history of urinary (tract) infections; Z72.89 Other problems related to lifestyle; Z98.890 Other specified postprocedural states; Z86.2 Personal history of diseases of the blood and blood-forming organs and certain disorders involving the immune mechanism
CPT/HCPCS: 36590; 81025; 82803; 88300; J0690; J2250; J2370; J2704; J3010; J7120; 88302

== ENCOUNTER 2020-12-15 13:07 | Outpatient (CLI) | payer OTHER ==
--- NOTE | 2020-12-15 14:40 | Ultrasound Report ---
RIGHT DIGITAL DIAGNOSTIC MAMMOGRAM WITH CAD , 12/15/2020 RIGHT LIMITED BREAST ULTRASOUND CLINICAL INFORMATION / INDICATION: Right breast pain. Patient has history of left mastectomy for carc inoma. UNILAT RT TECHNIQUE: Digital right mammographic imaging was performed. Limited ultrasound was performed. This e xamination was interpreted with the benefit of Computer-Aided Detection (CAD) analysis. COMPARISON: 10/10/2019 prior mammogram FINDINGS: Breast Density: The breasts are extremely dense, which lowers the sensitivity of mammography. MAMMOGRAPHIC FINDINGS: No dominant mass, suspicious calcifications, or architectural distortion in th e right breast. A silicone retropectoral breast implant is present. Overall, no significant interval change in the appearance of the mammogram. ULTRASOUND FINDINGS: Targeted ultrasound evaluation was performed of the area of interest. Sonograp hic evaluation of the medial half of the right breast does not reveal any sonographic abnormality of concern. There is no mass, cyst, or suspicious area of shadowing identified. IMPRESSION: No mammographic or sonographic evidence of malignancy. Clinical correlation recommended f or right breast pain. Follow up recommendation: Routine yearly BI-RADS Category 2: Benign. A "normal" or negative report should not discourage follow up or biopsy of a clinically significant f inding. A written summary of these findings will be mailed to the patient. The patient will be entered into a mammography reporting system which will generate a reminder letter for the patient's next appointmen t at the appropriate interval. According to the [employer], yearly mammograms are recommended starting at age 40 and continuing as long as a woman is in good health. Breast MRI is recommended for women with an jamal roximately 20-25% or greater lifetime risk of breast cancer, including women with a strong family his tory of breast or ovarian cancer and women who have been treated for Hodgkin's disease. Signer Name: Seble Snyder MD Signed: 12/15/2020 2:35 PM Workstation Name: [id number]
== END 2020-12-15 13:08 | disposition home or self-care (01) ==
LOC: SPVWC 13:07
PROVIDERS: ATTEND Surgery
DX: N64.4 Mastodynia (principal); R92.8 Other abnormal and inconclusive findings on diagnostic imaging of breast